=== PATIENT | male | born 1975 | race Caucasian/White ===

== ENCOUNTER 2024-12-24 05:47 | Day surgery (SDC) | payer BC ==
[2024-12-24] MEDS: Lactated Ringers 1,000 ML IV SCH (06:18)
[2024-12-24 06:28] VITALS: RESP 18
[2024-12-24] MEDS ORDERED: propofoL IV ONE (07:34)
[2024-12-24 08:31] VITALS: PULSE 69; TEMP 97.4; O2SAT 96
[2024-12-24 08:41] VITALS: BP 134/73
--- NOTE | 2024-12-27 08:54 | OP ---
SURGERY DATE/TIME: 12/24/2024 4063 - 1925 PREOPERATIVE DIAGNOSIS: Screening exam. POSTOPERATIVE DIAGNOSIS: Cecal polyp. Otherwise, normal colon. PROCEDURE: Colonoscopy with cold forceps biopsy. SURGEON: Alen Valente MD. ANESTHESIA: Medications were given by the anesthesia department. INDICATIONS: The patient is a 49-year-old white male patient presenting now for screening colonoscopy. The patient was appraised of the risks of the procedure including risk of perforation, phlebitis, untoward reaction to medication, bleeding, and missed lesions. The patient verbalized his understanding and desire to have procedure performed. DESCRIPTION OF PROCEDURE AND FINDINGS: The patient was given medication by the anesthesia department. He had continuous pulse oximetry, ECG monitoring, and intermittent blood pressure monitoring during the examination. He was placed in the left lateral decubitus position. Digital rectal examination was performed and revealed normal anal sphincter tone, no masses, and a normal prostate. The flexible Olympus videocolonoscope was used to intubate the rectum. A view of the colon was developed sequentially to the cecum where approximately a 1 cm sessile polyp was noted. This was biopsied and destroyed using multiple passes of the cold forceps biopsy instrument. With no other mucosal lesions being encountered, the scope was removed from the patient, who tolerated the procedure well, and was sent back to outpatient recovery in good condition. The prep was noted to be fair.
== END 2024-12-24 08:42 | disposition home or self-care (01) ==
LOC: SDC 05:47
PROVIDERS: ATTEND Family Medicine
DX: Z12.11 Encounter for screening for malignant neoplasm of colon (principal); D12.0 Benign neoplasm of cecum
CPT/HCPCS: 88305; J2704